=== PATIENT | female | born 1945 | race Caucasian/White ===

== ENCOUNTER 2025-04-03 06:26 | Day surgery (SDC) | payer OTHER, SELFPAY ==
[2025-04-03 09:19] LABS: Glucose - Point of Care 91 mg/dl (70-99)
== END 2025-04-03 11:08 | disposition home or self-care (01) ==
LOC: GI 06:26
PROVIDERS: ATTENDING PHYSICIAN Internal Medicine
DX: Z12.11 Encounter for screening for malignant neoplasm of colon (principal); K57.30 Diverticulosis of large intestine without perforation or abscess without bleeding; K64.9 Unspecified hemorrhoids; D12.3 Benign neoplasm of transverse colon; K63.5 Polyp of colon; K62.1 Rectal polyp; Z86.0101 Personal history of adenomatous and serrated colon polyps
CPT/HCPCS: 45385; 45380; 82962; 88305